=== PATIENT | male | born 1980 | race African-American/Black ===

== ENCOUNTER 2020-09-01 21:46 | Emergency (ER) | payer MEDICAID ==
[~2020-09-01] VITALS: Ht 188 cm; Wt 108.9 kg
[2020-09-01] MEDS ORDERED: ECOT81TA5 PO (22:02)
[2020-09-01] MEDS ORDERED: AMLO10TA PO (22:02)
[2020-09-01] MEDS ORDERED: BRIL90TA PO (22:02)
[2020-09-01] MEDS ORDERED: PROTPAK PO (22:02)
[2020-09-01] MEDS ORDERED: OMEG1CAP85 PO (22:02)
[2020-09-01] MEDS ORDERED: METO1TAB32 PO (22:02)
[2020-09-01] MEDS ORDERED: CRES20TA2 PO (22:02)
[2020-09-01 23:28] VITALS: BP 139/70
[2020-09-02] MEDS ORDERED: IBUPROFEN 800 MG TAB PO ONE (01:45)
[2020-09-02] MEDS ORDERED: BOOSTRIX/ADACEL VACCINE (DIPHTH/PERTUSS/ACELL/TETANUS) 0.5ML SYR IM ONE (01:45)
[2020-09-02] MEDS ORDERED: DERMABOND TOPICAL SKIN ADHESIVE TOP ONE (04:40)
[2020-09-02] MEDS ORDERED: CEPHALEXIN 500 MG CAP PO ONE (05:15)
[2020-09-02] MEDS ORDERED: CEPH500C PO (05:19)
== END 2020-09-02 06:05 | disposition home or self-care (01) ==
LOC: M ED 21:46
DX: S91.112A Laceration without foreign body of left great toe without damage to nail, initial encounter (principal); W26.8XXA Contact with other sharp object(s), not elsewhere classified, initial encounter; Y92.9 Unspecified place or not applicable; Y93.9 Activity, unspecified; Y99.9 Unspecified external cause status; Z79.82 Long term (current) use of aspirin; Z79.899 Other long term (current) drug therapy